=== PATIENT | male | born 1995 | race Caucasian/White ===

== ENCOUNTER 2019-08-29 21:33 | Emergency (ER) | payer SELFPAY ==
[2019-08-29] MEDS ORDERED: Oxymetazoline HCl 0.05% (30 ML BOT) ONE (22:15)
[2019-08-29] MEDS ORDERED: predniSONE 20 MG TAB ONE (22:15)
== END 2019-08-29 22:30 | disposition home or self-care (01) ==
LOC: MADERS 21:33
DX: R04.0 Epistaxis (principal); H65.93 Unspecified nonsuppurative otitis media, bilateral
CPT/HCPCS: 99283; J7512